=== PATIENT | male | born 1985 | race Caucasian/White ===

== ENCOUNTER 2018-04-12 16:57 | Emergency (ER) | payer OTHER ==
[2018-04-12 17:18] VITALS: BP 139/89; PULSE 80; TEMP 98.7; BMI 31.3
--- NOTE | 2018-04-12 17:23 | PDOC ---
Rapid Medical Evaluation Chief Complaint: Injury Time Seen by Provider: 04/12/18 17:19 Medical Evaluation: Allergies Allergy/AdvReac Type Severity Reaction Status Date / Time No Known Allergies Allergy Verified 04/12/18 17:14 Vital Signs Temp Pulse Resp BP Pulse Ox 98.7 F 80 19 139/89 97 04/12/18 17:14 04/12/18 17:14 04/12/18 17:14 04/12/18 17:14 04/12/18 17:14 04/12/18 17:19 Pt presents to the ED L 3rd finger distal metacarple fracture as diagnosed at [facility]. Pt also with laceration to the 3rd finger. Crushed the finger in the back of an ambulance door. Pt has x-rays and is UTD on his tetanus shot Exam: Swelling to L 3rd finger with laceration to the palmar surface at the dip Orders: Nothing Pt to proceed to ED for further eval. Discharge Disposition - Diagnosis Finger pain, left - Referrals - Patient Instructions - Post Discharge Activity
[2018-04-12] MEDS ORDERED: ceFAZolin 2 GRAM PREMIX BAG IVPB ONE (17:37)
[2018-04-12] MEDS ORDERED: CEFAZOLIN 2 GM/D5W 2 GM/50 ML ML IVPB ONE (17:45)
[2018-04-12] MEDS ORDERED: CEFAZOLIN 1 GM/D5W 1 GM/50 ML BAG ONE (17:49)
--- NOTE | 2018-04-12 18:26 | PDOC ---
History of Present Illness - General Chief Complaint: Injury Stated Complaint: SENT BY URGENT CARE/[facility] Time Seen by Provider: 04/12/18 17:19 - History of Present Illness Initial Comments: 04/12/18 18:19 32 old fully immunized male up-to-date on tetanus without comorbidities presents for evaluation of a fracture laceration on his left middle finger after having his hand slammed in a door while at work today. Seen in urgent care he was told to come to the emergency room for further evaluation and treatment options. Past History - Past Medical History Allergies/Adverse Reactions: Allergies Allergy/AdvReac Type Severity Reaction Status Date / Time No Known Allergies Allergy Verified 04/12/18 17:14 Home Medications: Ambulatory Orders Cephalexin [Keflex] 500 mg PO QID #20 capsule 04/12/18 COPD: No Other medical history: DENIES. - Suicide/Smoking/Psychosocial Hx Smoking History: Never smoked Review of Systems - Review of Systems Musculoskeletal: Yes: See HPI *Physical Exam - Vital Signs Last Vital Signs Temp Pulse Resp BP Pulse Ox 98.7 F 80 19 139/89 97 04/12/18 17:14 04/12/18 17:14 04/12/18 17:14 04/12/18 17:14 04/12/18 17:14 - Physical Exam Comments: 04/12/18 18:20 There is a 2 cm laceration on the volar aspect of the left middle finger extending proximally from the middle part of the skin overlying the distal phalanx to the DIPJ. FDS and FDP function work independently. There is no evidence of foreign body. Subcutaneous fat is exposed. No gross sensorimotor deficits. Moderate Sedation - Procedure Monitoring Vital Signs: Procedure Monitoring Vital Signs Temperature 98.7 F 04/12/18 17:14 Pulse Rate 80 04/12/18 17:14 Respiratory Rate 19 04/12/18 17:14 Blood Pressure 139/89 04/12/18 17:14 O2 Sat by Pulse Oximetry (%) 97 04/12/18 17:14 ED Treatment Course - RADIOLOGY Radiology Studies Ordered: Category Date Time Status FINGER(S) LEFT [RAD] Stat Radiology 04/12/18 17:38 Completed - Medications Given in the ED: ED Medications Discontinued Medications Generic Name Dose Route Start Last Admin Trade Name Freq PRN Reason Stop Dose Admin Cefazolin Sodium/Dextrose 2 gm in 50 mls @ 100 mls/hr 04/12/18 17:45 17:56 Ancef 2 Gm Premixed Ivpb - IVPB 04/12/18 18:14 100 mls/hr ONCE ONE Administration Medical Decision Making - Medical Decision Making 04/12/18 18:21 Under aseptic technique 6 mL of 1% lidocaine was used without epinephrine for digital block. This was tolerated well. After appropriate anesthesia the wound was copiously irrigated reprepped and edges approximated with 5-0 nylon using 5 simple interrupted sutures. This was tolerated well. A dry sterile dressing was placed in a finger split was applied. Hand surgery follow-up was given. This case was discussed with hand surgery as well. *DC/Admit/Observation/Transfer Diagnosis at time of Disposition: Finger pain, left, Finger fracture, left, Finger laceration - Discharge Dispostion Disposition: HOME Condition at time of disposition: Stable Decision to Admit order: No - Referrals Referrals: Demetri Feliz MD [Staff Physician] - - Patient Instructions Additional Instructions: Please take the antibiotics as directed and finish the entire course. This is prophylactic to prevent infection. Return to the emergency room should there be any issue such as increasing pain drainage redness or swelling to the area. May take Tylenol and Motrin as directed for pain. Keep the dressing and splint on for the next 48 hours. After 48 hours and may remove the splint the dressing wash her hand but soap and water and leave the wound open to air. The sutures must stay in for 10 days. Again follow-up with hand surgery within one to 2 days for further evaluation and treatment as well as for wound check and return to the emergency room should you have any further issues. - Post Discharge Activity
== END 2018-04-12 18:41 | disposition home or self-care (01) ==
LOC: JERFT 16:57
PROC: 2W3KX1Z Immobilization of Left Finger using Splint (ICD-10-PCS; principal; 2018-04-12)
PROC: 0HQGXZZ Repair Left Hand Skin, External Approach (ICD-10-PCS; 2018-04-12)
DX: S62.663B Nondisplaced fracture of distal phalanx of left middle finger, initial encounter for open fracture (principal); V86.41XA Person injured while boarding or alighting from ambulance or fire engine, initial encounter; Y93.89 Activity, other specified; Y92.89 Other specified places as the place of occurrence of the external cause; Y99.0 Civilian activity done for income or pay
CPT/HCPCS: 73140-TC-LT-FY; 99281-25